=== PATIENT | male | born 1995 | race Caucasian/White ===

== ENCOUNTER 2016-11-13 12:41 | Outpatient (CLI) | payer OTHER | END 2016-11-13 12:42 | disposition home or self-care (01) | DX: M25.562 Pain in left knee (principal); S80.02XA Contusion of left knee, initial encounter; S83.412A Sprain of medial collateral ligament of left knee, initial encounter; S86.812A Strain of other muscle(s) and tendon(s) at lower leg level, left leg, initial encounter ==

== ENCOUNTER 2017-08-07 03:58 | Emergency (ER) | payer OTHER ==
--- NOTE | 2017-08-07 05:09 | ED Physician Documentation ---
PD HPI CHEST PAIN - Stated complaint Stated Complaint: CHEST PAIN,DIZZINESS - Chief complaint Chief Complaint: Cardiac - History obtained from History obtained from: Patient, Family - History of Present Illness Timing - onset: Today Timing - onset during: Rest Timing - details: Now resolved Quality: Pressure, Aching Location: Left chest Improved by: Rest Associated symptoms: Feeling faint / dizzy. No: Shortness of air, Diaphoresis, Nausea Similar symptoms before: Work up / diagnostics Recently seen: Not recently seen - Additional information Additional information: Patient is a 22 year old male with a history of anxiety who is presenting to the emergency department for chest pain. Patient states that he was sleeping on his left arm and when he woke up it felt like it was tingling. Patient states that he had some pain and felt dizzy at that time. patient states that his pain has now resolved. Patient denies any shortness of breath, leg swelling or family history of cardiac or pulmonary disease. Review of Systems Constitutional: denies: Fever, Chills Eyes: denies: Decreased vision Ears: denies: Ear pain, Drainage/discharge Nose: denies: Congestion Throat: denies: Oral lesions / sores, Sore throat Cardiac: reports: Chest pain / pressure. denies: Palpitations, Pedal edema, Calf pain Respiratory: denies: Dyspnea, Cough, Wheezing GI: denies: Abdominal Pain, Nausea, Vomiting, Constipation : denies: Dysuria, Frequency Skin: denies: Rash, Lesions Musculoskeletal: denies: Neck pain, Back pain, Extremity pain, Joint pain Neurologic: denies: Generalized weakness, Focal weakness, Numbness, Syncope, Headache, LOC Psychiatric: reports: Anxiety Immunocompromised: denies: Immunocompromised PD PAST MEDICAL HISTORY - Past Medical History Past Medical History: Yes Other Past Medical History: VSD - Past Surgical History Past Surgical History: No - Present Medications Home Medications: Ambulatory Orders Medication Instructions Recorded Confirmed No Known Home Medications [No 08/07/17 08/07/17 Known Home Medications] - Allergies Allergies/Adverse Reactions: Allergies Allergy/AdvReac Type Severity Reaction Status Date / Time No Known Drug Allergies Allergy Verified 08/07/17 04:11 - Social History Does the pt smoke?: No Smoking Status: Never smoker Does the pt drink ETOH?: Yes Does the pt have substance abuse?: No - Immunizations Immunizations are current?: Yes - POLST Patient has POLST: No PD ED PE NORMAL - Vitals Vital signs reviewed: Yes - General General: Alert and oriented X 3 - HEENT HEENT: Atraumatic, PERRL - Neck Neck: No JVD - Cardiac Cardiac: RRR, No murmur - Respiratory Respiratory: No respiratory distress, Clear bilaterally - Abdomen Abdomen: Soft, Non tender, Non distended - Derm Derm: Normal color, Warm and dry, No rash - Extremities Extremities: No deformity, Normal ROM s pain, No edema, No calf tenderness / cord - Neuro Neuro: Alert and oriented X 3, No motor deficit, No sensory deficit, Normal speech - Psych Psych: Normal mood Results - Vitals Vitals: Vital Signs - 24 hr 08/07/17 04:05 Temperature 36.2 C L Heart Rate 79 Respiratory 14 Rate Blood Pressure 120/62 O2 Saturation 100 Oxygen O2 Source Room air - EKG (time done) 0420 Rate: Rate (enter#) (77) Rhythm: NSR [place]: Normal Intervals: Normal NM QRS: Normal Ischemia: Non specific changes Compare to prior EKG: Old EKG unavailable - Labs Labs: Laboratory Tests 08/07/17 04:23 Troponin I < 0.04 PD MEDICAL DECISION MAKING - ED course Complexity details: reviewed old records, reviewed results, re-evaluated patient , considered differential, d/w patient, d/w family ED course: Patient was seen and examined at bedside. ekg was performed which was normal sinus. troponin was drawn and was also within normal limits. Patient had negative PERC and MELISSA and HEART scores. Patient's pain was unlikely cardiac or pulmonary in nature. Patient required no further work up and was stable for discharge with outpatient follow up. Departure - Departure Disposition: 01 Home, Self Care Clinical Impression: Atypical chest pain Condition: Good Instructions: ED Chest Pain Atypical Unkn Cause Follow-Up: ANAND SANDERS [Primary Care Provider] - Comments: Your diagnostics today were within normal limits. Your symptoms are unlikely cardiac in nature and more likely secondary to your anxiety or musculoskeletal in nature. You should follow up with your pmd as needed. You may return to the emergency department at any time for new, worsening or uncontrollable symptoms. Forms: Activity restrictions
[2017-08-07 05:25] VITALS: BP 131/60
== END 2017-08-07 05:25 | disposition home or self-care (01) ==
LOC: ED 03:58
DX: R07.89 Other chest pain (principal); F41.9 Anxiety disorder, unspecified
CPT/HCPCS: 36415; 84484; 93005; 99283

== ENCOUNTER 2017-12-07 08:03 | Outpatient (CLI) | payer OTHER | END 2017-12-07 08:04 | disposition home or self-care (01) | LOC: DI 08:03 | DX: R00.2 Palpitations (principal); R01.1 Cardiac murmur, unspecified; Q21.0 Ventricular septal defect | CPT/HCPCS: 93306 ==

== ENCOUNTER 2017-12-11 09:24 | Outpatient (CLI) | payer OTHER | END 2017-12-11 09:25 | disposition home or self-care (01) | LOC: RT 09:24 | DX: R06.2 Wheezing (principal) | CPT/HCPCS: 94060; J7613 ==

== ENCOUNTER 2018-02-25 04:15 | Inpatient (IN) | payer OTHER ==
[2018-02-25] MEDS ORDERED: SODIUM CHLORIDE 0.9% 1,000 ML IV ONE ×2 (04:33→06:03)
[2018-02-25 04:36] LABS: GLUCOSE, URINE (UA) NEGATIVE (NEGATIVE); KETONES,URINE (UA) TRACE mg/dL (NEGATIVE); LEUKOCYTE ESTERASE, URINE TRACE (NEGATIVE); NITRITE,URINE NEGATIVE (NEGATIVE); OCCULT BLOOD,URINE LARGE (NEGATIVE); PROTEIN,URINE 30 mg/dL (NEGATIVE); UROBILINOGEN,URINE 0.2 (NORMAL) E.U./dL (NORMAL)
--- NOTE | 2018-02-25 04:36 | ED Physician Documentation ---
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 Tonight and early this morning, he had two episodes of syncope while at home and subsequently noted what appeared to be gross hematuria. Review of Systems Constitutional: reports: Myalgias. denies: Fever Cardiac: reports: Reviewed and negative Respiratory: reports: Reviewed and negative GI: reports: Reviewed and negative : reports: Hematuria. denies: Dysuria, Frequency Musculoskeletal: denies: Neck pain, Back pain Neurologic: denies: Generalized weakness, Focal weakness, Headache PD PAST MEDICAL HISTORY - Past Medical History Past Medical History: Yes Other Past Medical History: VSD - Past Surgical History Past Surgical History: No - Present Medications Home Medications: Ambulatory Orders Medication Instructions Recorded Confirmed Venlafaxine ER [Effexor ER] 1 tab PO DAILY 02/25/18 02/25/18 - Allergies Allergies/Adverse Reactions: Allergies Allergy/AdvReac Type Severity Reaction Status Date / Time No Known Drug Allergies Allergy Verified 02/25/18 04:21 - Living Situation Living Arrangement: reports: At home - Social History Does the pt smoke?: No Smoking Status: Never smoker Does the pt drink ETOH?: Yes Does the pt have substance abuse?: No - Immunizations Immunizations are current?: Yes - POLST Patient has POLST: No PD ED PE NORMAL - Vitals Vital signs reviewed: Yes - General General: Alert and oriented X 3, No acute distress, Well developed/nourished - HEENT HEENT: Moist mucous membranes - Neck Neck: Supple, no meningeal sign - Cardiac Cardiac: RRR, No murmur - Respiratory Respiratory: No respiratory distress, Clear bilaterally - Abdomen Abdomen: Soft, Non tender - Derm Derm: Normal color, Warm and dry - Extremities Extremities: No edema Results - Vitals Vitals: Vital Signs - 24 hr 02/25/18 04:19 Temperature 36.3 C L Heart Rate 69 Respiratory 16 Rate Blood Pressure 123/76 O2 Saturation 99 Oxygen O2 Source Room air - Labs Labs: Laboratory Tests 02/25/18 02/25/18 02/25/18 04:30 04:30 04:30 WBC 11.2 H RBC 5.46 Hgb 15.6 Hct 47.0 MCV 86.2 MCH 28.7 MCHC 33.3 RDW 13.0 Plt Count 303 MPV 8.1 Neut # 6.9 H Lymph # 2.7 [place] # 1.1 H Eos # 0.4 Baso # 0.1 Absolute Nucleated RBC 0.01 Nucleated RBC % 0.1 Sodium 135 Potassium 3.3 L Chloride 96 L Carbon Dioxide 29 Anion Gap 10.0 BUN 19 Creatinine 1.0 Estimated GFR (MDRD) 92 Glucose 173 H Calcium 9.3 Total Bilirubin 1.1 H AST 293 H ALT 70 H Alkaline Phosphatase 64 Total Creatine Kinase CK-MB (CK-2) Total Protein 7.9 Albumin 4.6 Globulin 3.3 Albumin/Globulin Ratio 1.4 Lipase 24 Urine Color YELLOW Urine Clarity CLEAR Urine pH 7.0 Ur Specific [place] 1.015 Urine Protein 30 H Urine Glucose (UA) NEGATIVE Urine Ketones TRACE Urine Occult Blood LARGE H Urine Nitrite NEGATIVE Urine Bilirubin NEGATIVE Urine Urobilinogen 0.2 (NORMAL) Ur Leukocyte Esterase TRACE H Urine RBC 6-10 H Urine WBC 11-25 H Ur Squamous Epith Cells RARE Squamous Urine Bacteria Few Urine Mucus Marked Strands Ur Microscopic Review INDICATED Urine Culture Comments INDICATED 02/25/18 02/25/18 04:30 04:30 WBC RBC Hgb Hct MCV MCH MCHC RDW Plt Count MPV Neut # Lymph # [place] # Eos # Baso # Absolute Nucleated RBC Nucleated RBC % Sodium Potassium Chloride Carbon Dioxide Anion Gap BUN Creatinine Estimated GFR (MDRD) Glucose Calcium Total Bilirubin AST ALT Alkaline Phosphatase Total Creatine Kinase 9496 H* CK-MB (CK-2) 70.8 H Total Protein Albumin Globulin Albumin/Globulin Ratio Lipase Urine Color Urine Clarity Urine pH Ur Specific [place] Urine Protein Urine Glucose (UA) Urine Ketones Urine Occult Blood Urine Nitrite Urine Bilirubin Urine Urobilinogen Ur Leukocyte Esterase Urine RBC Urine WBC Ur Squamous Epith Cells Urine Bacteria Urine Mucus Ur Microscopic Review Urine Culture Comments PD MEDICAL DECISION MAKING - ED course Complexity details: reviewed results, re-evaluated patient, considered differential, d/w patient Departure - Departure Disposition: 66 [facility] DC/Xfer Clinical Impression: Rhabdomyolysis Condition: Good Discharge Date/Time: 02/25/18 07:07
[2018-02-25 04:37] LABS: BASOPHILS # (AUTO) 0.1 10^3/uL (0.0-0.1); BASOPHILS % (AUTO) 0.8 %; EOSINOPHILS # (AUTO) 0.4 10^3/uL (0.0-0.7); EOSINOPHILS % (AUTO) 3.6 %; HGB - HEMOGLOBIN 15.6 g/dL (14.0-18.0); LYMPHOCYTES # (AUTO) 2.7 10^3/uL (1.5-3.5); MEAN CORPUSCULAR HEMOGLOBIN 28.7 pg (27.0-31.0); MEAN CORPUSCULAR HGB CONC 33.3 g/dL (32.0-36.0); MEAN CORPUSCULAR VOLUME 86.2 fL (80.0-94.0); MEAN PLATELET VOLUME 8.1 fL (7.4-11.4); MONOCYTES # (AUTO) 1.1 10^3/uL (0.0-1.0); MONOCYTES % (AUTO) 9.5 %; NEUTROPHILS # (AUTO) 6.9 10^3/uL (1.5-6.6); NEUTROPHILS % (AUTO) 62.1 %; PLT - PLATELET COUNT 303 10^3/uL (130-450); RED BLOOD COUNT 5.46 10^6/uL (4.70-6.10); WHITE BLOOD COUNT 11.2 x10^3/uL (4.8-10.8)
[2018-02-25 04:38] LABS: CLARITY,URINE CLEAR (CLEAR)
[2018-02-25 04:41] LABS: BILIRUBIN,URINE NEGATIVE (NEGATIVE); ICTOTEST,URINE NEGATIVE
[2018-02-25 04:45] LABS: BACTERIA,URINE Few /HPF (None Seen); MUCUS,URINE Marked Strands; SQUAMOUS EPITHELIAL CELL,UR RARE Squamous (<= Few)
[2018-02-25 04:48] LABS: ALBUMIN 4.6 g/dL (3.2-5.5); ALBUMIN/GLOBULIN RATIO 1.4 (1.0-2.2); BILIRUBIN,TOTAL 1.1 mg/dL (0.2-1.0); CALCIUM 9.3 mg/dL (8.5-10.3); TOTAL PROTEIN 7.9 g/dL (6.7-8.2)
[2018-02-25] MEDS ORDERED: ONDANSETRON ODT 4 MG TABLET TL PRN (05:58)
[2018-02-25] MEDS ORDERED: SODIUM CHLORIDE FLUSH 0.9% 10 ML SYRINGE IVP PRN (05:58)
[2018-02-25] MEDS ORDERED: oxyCODONE 5 MG TABLET PO PRN (05:58)
[2018-02-25] MEDS ORDERED: ONDANSETRON 4 MG/2 ML VIAL IVP PRN (05:58)
--- NOTE | 2018-02-25 08:03 | HISTORY & PHYSICAL EXAMINATION ---
DATE OF SERVICE: 02/25/2018 Physician: Alondra Solomon MD PRIMARY CARE PROVIDER: [facility]. ADMITTING PROVIDER: Alondra Solomon MD CHIEF COMPLAINT: Syncope. HISTORY OF PRESENT ILLNESS: The patient is a 22-year-old white male who has a small VSD, "so small it can't even be measured." He has been seen in our emergency room twice for palpitations and anxiety. He is going through a divorce. Once he was put on venlafaxine, quite a bit of his palpitations and anxiety have resolved. 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 Has not trained. He did the same thing with the [employer] race a year ago. Did not train. He drank a bottle of Gatorade and half a bottle of water. 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 He has not done that for quite some time. He does not know why he did not drink very much after the race. He does note that he was incredibly sore and that "everything hurts." He laughs and says that even the roof of his mouth and his eyeballs hurt. Rolling over in bed hurts. It is just diffuse myalgias and muscle pain. This morning he got up to urinate, he did notice that when he was urinating his urine was edi to brown. As he was standing at the sink washing his hands he started feeling nauseated, then diaphoretic with alternating cold and hot. Walked out to the hallway, rested his head against the cool hallway wall, and the next thing he knows he is on the floor. He had already started to call a friend of his when he passed out and the call had been going on for 15 seconds when he woke up. He then almost did it again when he got up to walk to go sit down or lie down. He was brought to the hospital by ambulance. He was evaluated by Dr. Angel. He is afebrile, normotensive, oxygenating well on room air. Other than his diffuse myalgias, he has got a negative physical exam. His laboratory studies show potassium of 3.3, anion gap that is normal, BUN and creatinine that are normal, random glucose of 173, total bilirubin 1.1, AST 293, ALT 70, and a total CK of 9496. White cell count is 11.2. Hemoglobin and hematocrit are normal. Urinalysis has proteinuria, large occult blood, leukocyte esterase, 6- 10 red cells and 11-25 white cells. Urine bilirubin is negative. PAST MEDICAL HISTORY 1. Avulsion fracture of one of his kneecaps. He cannot remember which one. 2. VSD since childhood. He has been seen by Cardiology in the past. Told that it is too small to operate on. They were thinking it was going to close on its own. Echocardiogram done with anxiety and palpitations in December 2017, shows the small high muscular ventricular septal defect with the left to right shunt. 3. Exercise-induced asthma. He rarely uses an inhaler. Never had to use it with the marathon. 4. Adjustment disorder with situational depression regarding his divorce. This is ongoing. [place]. Put on venlafaxine. Good results. Plan is to keep him on it for 6 months and then stop. ALLERGIES: NO KNOWN DRUG ALLERGIES. SOCIAL HISTORY: He is from [place]. 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 He has been in [place], [place], [place]. Did finish college education. He never smoked. Rarely drinks alcohol. Has no history of recreational abuse , specifically cannabis, cocaine, heroin, LSD, methamphetamines. He is currently his . He has no restrictions on his activities of daily living. FAMILY HISTORY 1. Dad is 48 and has ulcerative colitis. 2. Mom is 47 and unfortunately has problems with schizoaffective disorder induced from multiple polysubstance abuse including heroin, speed, etc. 3. One brother is healthy. 4. No children. CODE STATUS: FULL CODE. REVIEW OF SYSTEMS CONSTITUTIONAL: Has been without any changes in weight, no night sweats, and overall quite a healthy francie. He has gone from working out twice a day to once a day because of the stress of the divorce. HEENT: As already stated in HPI; the roof of his mouth hurts, eyeballs hurt with this episode. No blurred vision. No problems with swallowing or dysphagia. PULMONARY: Exercise-induced asthma. Otherwise, no history of bronchitis, shortness of breath, coughing, wheezing. Has not had asthma for quite some time now, maybe even a couple of years. CARDIAC: VSD as above. No edema. No orthopnea. No cyanosis. GASTROINTESTINAL: No blood in his stool. No abdominal pain. GENITOURINARY: Recent testicular pain. His doctor told him he wanted him to get an ultrasound to rule out testicular cancer, but he has not gotten around to doing it. He does have nocturia once. Not necessarily every night. Wonders if his stream is slightly decreased over time, but no hematuria or flank pain. JOINTS: Knees bother him, that is even without the [place] or the marathon, but otherwise his joints usually do not hurt. They just started hurting yesterday after the race. SKIN: Brand new tattoo, right arm. Otherwise no new lesions, rashes, pruritus. PSYCHIATRIC: Depression, anxiety are much improved with venlafaxine. Right now , more than anything he is "resigned. " There is no suicidal ideation. CENTRAL NERVOUS SYSTEM: Syncope is new for him. No history of seizures, memory is fine. No focal deficit complaints. No dysesthesias. PHYSICAL EXAMINATION VITAL SIGNS: Temperature is 36.3, pulse is 70, blood pressure is 128/73, respirations 16, 95% on room air. GENERAL: He is a medium height young white male who looks stated age, unshaven , no acute distress. HEENT: ENT unremarkable. Slightly dry oral mucosa but overall pink. Moist. Pupils reactive. Sclerae nonicteric. No facial asymmetry. Speech is normal. NECK: Supple. No JVD or bruits. LUNGS: Clear to auscultation and percussion. HEART: PMI normally placed with a regular rate and rhythm. I am not hearing a murmur with his VSD. ABDOMEN: Soft, nontender. No organomegaly. GENITOURINARY: I did not do a exam. EXTREMITIES: Warm without clubbing, cyanosis, or edema. There are no joint effusions. Muscles do hurt as I palpate calves, thighs, shoulders, shoulder girdle. NEUROLOGIC: He is alert and oriented to person, place, and time. Follows 2- step commands appropriately. Cranial nerves 2-12 normal. In getting up out of the bed to transfer to med/surg, he moans with the pain of it all. Slow to arise, but able to transfer from a lying to sitting position. Sitting to standing and then transferring to the wheelchair very slowly and with a lot of aches and pains, but no focal deficits. No tremors, no ataxia , no presyncope. CMP discussed as above, as was CBC. ASSESSMENT/PLAN 1. Nontraumatic rhabdomyolysis, induced from aggressive exercise. Plan inpatient admission. I did hesitate and wonder if he should be placed in observation, but I do think he is going to be here 2 midnights to bring his CPK under 5000. ATTESTATION: The patient will admitted less than 96 hours. At 96 hours, he will be evaluated for discharge or transfer. Also, consideration was given to a bicarbonate drip. I am going to repeat his CPK in 6 hours. If his CPK has come down with another liter of normal saline followed by 200 mL of normal saline, I will not add bicarbonate to his normal saline. If his CPK does not come down, consider blood gas, adding bicarbonate to IV fluids. The patient is anxious. Wonders if he is at risk for dying, heart failure, kidney damage because of what he has read on the internet. I reassured him that to the best of my reasonable expectation, he is a young, healthy white male who has suffered the unfortunate consequences of aggressive exercise. So far, his labs look great other than the elevated CPK and the elevated liver enzymes. Nevertheless, he will be closely monitored with telemetry, labs every 6 hours for the next 12 hours, looking for electrolyte derangement. 2. Syncope with history of ventricular septal defect. Already had the echo in December. To follow up with his audio video repairer next month, that is already in the works and being planned for. I strongly encouraged him to do so. With his current history of syncope, which he has never done before, audio video repairer should be notified. Again, the patient will be placed on telemetry. 3. History of exercise-induced asthma. Currently stable. No medications needed at this time. 4. CODE STATUS: FULL CODE. 5. Deep venous thrombosis prophylaxis will be CLEOPATRA valle. TD: 02/25/2018 08:02 MTDYaritza
[2018-02-25] MEDS: SODIUM CHLORIDE FLUSH 0.9% 10 ML SYRINGE IVP SCH ×3 (08:52→23:34)
[2018-02-25] MEDS: SODIUM CHLORIDE 0.9% 1,000 ML IV SCH ×4 (08:52→22:19)
[2018-02-25] MEDS: POLYETHYLENE GLYCOL 3350 17 GM PACKET PO SCH (08:53)
[2018-02-25 10:49] LABS: CALCIUM 8.5 mg/dL (8.5-10.3); CREATININE 0.7 mg/dL (0.6-1.2)
--- NOTE | 2018-02-25 13:29 | PROVIDER PROGRESS NOTE ---
Subjective - Prog Note Date Prog Note Date: 02/25/18 - Subjective Pt reports feeling: Improved Subjective: pt does not have any complaints, does not have distress. Current Medications - Current Medications Current Medications: Active Medications Sodium Chloride (Normal Saline 0.9%) 1,000 mls @ 200 mls/hr IV .Q5H [facility] Last Admin: 02/25/18 12:28 Dose: 200 mls/hr Ondansetron HCl (Zofran Inj) 4 mg IVP Q6HR PRN PRN Reason: Nausea / Vomiting Ondansetron HCl (Zofran Odt) 4 mg TL Q6HR PRN PRN Reason: Nausea / Vomiting Oxycodone HCl (Roxicodone) 5 mg PO Q4HR PRN PRN Reason: Pain 5 to 7 Polyethylene Glycol (Miralax) 17 gm PO DAILY [facility] Last Admin: 02/25/18 08:53 Dose: Not Given Sodium Chloride (Normal Saline Flush 0.9%) 10 ml IVP PRN PRN PRN Reason: NEEDED PER PROVIDER ORDERS Sodium Chloride (Normal Saline Flush 0.9%) 10 ml IVP 0100,0900,1700 [facility] Last Admin: 02/25/18 08:52 Dose: Not Given Venlafaxine ER [Effexor ER] 75 mg PO DAILY 02/25/18 Objective - Vital Signs/Intake & Output Reviewed Vital Signs: Yes Vital Signs: Vital Signs x48h Temp Pulse Pulse Resp BP BP Pulse Ox 02/25/18 07:34 37.0 C 68 14 112/64 98 02/25/18 06:15 70 16 128/73 95 Intake & Output: Intake & Output 02/22/18 02/23/18 02/24/18 02/25/18 23:59 23:59 23:59 23:59 Intake Total 2570 Balance 2570 - Objective General Appearance: positive: No acute distress, Alert. negative: Lethargic Eyes Bilateral: positive: Normal inspection, PERRL, No lid inflammation, Conjunctivae nml ENT: positive: ENT inspection nml, Pharynx nml, No signs of dehydration. negative: Purulent nasal drainage, Pharyngeal erythema, Oral lesions, Dry mucous membranes Neck: positive: Nml inspection, Thyroid nml, No JVD, Trachea midline. negative : Thyromegaly, Lymphadenopathy (R), Lymphadenopathy (L), Stiff neck, Carotid bruit, Swelling/bruising, Tracheal deviation Respiratory: positive: Chest non-tender, No respiratory distress, Breath sounds nml. negative: Wheezes, Rales, Rhonchi Cardiovascular: positive: Regular rate & rhythm, No murmur, No gallop. negative : Irregularly irregular, Extrasystoles, Tachycardia, Bradycardia, JVD present, Systolic murmur, Diastolic murmur Peripheral Pulses: 2+ Radial (R), 2+ Radial (L), 2+ Dorsalis pedis (R), 2+ Dorsalis pedis (L) Abdomen: positive: Non-tender, No organomegaly, Nml bowel sounds, No distention. negative: Tenderness, Guarding, Rebound Back: positive: Nml inspection. negative: CVA tenderness (R), CVA tenderness (L ) Skin: positive: Color nml, No rash, Warm, Dry. negative: Cyanosis, Diaphoresis , Pallor Extremities: positive: Non-tender, Full ROM, Nml appearance. negative: No pedal edema, Pedal edema, Calf tenderness, Joint swelling Neurologic/Psychiatric: positive: Oriented x3, CN's nml (2-12), Motor nml, Sensation nml, Mood/affect nml. negative: Weakness, Sensory loss, Facial droop , Slurred/abnml speech, Depressed mood/affect - Lab Results Fish Bones: 02/25/18 04:30 02/25/18 09:46 Other Labs: Lab Results x24hrs 02/25/18 Range/Units 09:46 Sodium 135 (135-145) mmol/L Potassium 3.0 L (3.5-5.0) mmol/L Chloride 101 (101-111) mmol/L Carbon Dioxide 26 (21-32) mmol/L Anion Gap 8.0 (6-13) BUN 13 (6-20) mg/dL Creatinine 0.7 (0.6-1.2) mg/dL Estimated GFR (MDRD) 139 (>89) Glucose 119 H (70-100) mg/dL Calcium 8.5 (8.5-10.3) mg/dL Total Creatine Kinase 6177 H* (22-269) IU/L Assessment/Plan - Problem List (1) Rhabdomyolysis Impression: pt denies any pain. No distress. Normal renal function. CKP from 9000 is down to 6000 continue IVF at 200 continue lab test continue vital monitor Qualifiers: Rhabdomyolysis type: non-traumatic Qualified Code(s): M62.82 - Rhabdomyolysis (2) Syncope Impression: with hx of VSD, pt had ECHO on Dec. 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 pt denies chest pain, palpitation, SOB. No distress today. strongly encourage pt follow up vital, tele monitor (3) History of asthma Impression: stable, no any acute distress vital monitor (4) Depression with anxiety Impression: stable, resume home meds Effexor
[2018-02-25] MEDS: VENLAFAXINE ER 75 MG CAPSULE PO SCH (13:51)
[2018-02-25 16:51] LABS: CALCIUM 8.4 mg/dL (8.5-10.3); CREATININE 0.8 mg/dL (0.6-1.2)
[2018-02-25] MEDS ORDERED: ACETAMINOPHEN 325 MG TABLET PO PRN (17:04)
--- NOTE | 2018-02-25 18:30 | CT Report ---
EXAM: CT HEAD EXAM DATE: 02/25/2018 06:12 PM. CLINICAL HISTORY: Headache, after fall. COMPARISON: None. TECHNIQUE: Multiaxial CT images were obtained from the foramen magnum to the vertex. Reformats: Coron al. IV contrast: None. In accordance with CT protocol optimization, one or more of the following dose reduction techniques w ere utilized for this exam: automated exposure control, adjustment of mA and/or KV based on patient s ize, or use of iterative reconstructive technique. FINDINGS: Parenchyma: No intraparenchymal hemorrhage. No evidence of mass, midline shift, or CT findings of inf arction. Jerez-white differentiation is distinct. Extraaxial Spaces: Normal for age. No subdural or epidural collections. Ventricles: Normal in size and position. Sinuses and Orbits: Imaged paranasal sinuses, orbits, and mastoids show no significant abnormality. Bones: Unremarkable. Other: None. IMPRESSION: Normal head CT. [facility] Referring Provider Line: [phone] SITE ID: [id number]
[2018-02-26] MEDS: SODIUM CHLORIDE 0.9% 1,000 ML IV SCH ×2 (03:24→08:37)
[2018-02-26 05:04] LABS: BASOPHILS # (AUTO) 0.1 10^3/uL (0.0-0.1); EOSINOPHILS # (AUTO) 0.5 10^3/uL (0.0-0.7); EOSINOPHILS % (AUTO) 7.6 %; HGB - HEMOGLOBIN 13.1 g/dL (14.0-18.0); LYMPHOCYTES # (AUTO) 1.9 10^3/uL (1.5-3.5); LYMPHOCYTES % (AUTO) 32.3 %; MEAN CORPUSCULAR HEMOGLOBIN 28.9 pg (27.0-31.0); MEAN CORPUSCULAR HGB CONC 33.2 g/dL (32.0-36.0); MEAN CORPUSCULAR VOLUME 87.1 fL (80.0-94.0); MEAN PLATELET VOLUME 8.1 fL (7.4-11.4); MONOCYTES # (AUTO) 0.6 10^3/uL (0.0-1.0); MONOCYTES % (AUTO) 9.9 %; NEUTROPHILS % (AUTO) 49.2 %; PLT - PLATELET COUNT 244 10^3/uL (130-450); RED BLOOD COUNT 4.52 10^6/uL (4.70-6.10); RED CELL DISTRIBUTION WIDTH 13.2 % (12.0-15.0)
[2018-02-26 05:20] LABS: ALBUMIN 3.4 g/dL (3.2-5.5); ALBUMIN/GLOBULIN RATIO 1.5 (1.0-2.2); BILIRUBIN,TOTAL 0.6 mg/dL (0.2-1.0); CALCIUM 8.1 mg/dL (8.5-10.3); CREATININE 0.7 mg/dL (0.6-1.2); MAGNESIUM 1.8 mg/dL (1.7-2.8); TOTAL PROTEIN 5.7 g/dL (6.7-8.2)
[2018-02-26 08:12] VITALS: BP 120/79
[2018-02-26] MEDS: VENLAFAXINE ER 75 MG CAPSULE PO SCH (09:09)
[2018-02-26] MEDS: POLYETHYLENE GLYCOL 3350 17 GM PACKET PO SCH (09:33)
[2018-02-26] MEDS: SODIUM CHLORIDE FLUSH 0.9% 10 ML SYRINGE IVP SCH (09:33)
--- NOTE | 2018-02-26 10:18 | Discharge Plan ---
Discharge Plan Disposition: 01 Home, Self Care Condition: Good Diet: Regular Activity Restrictions: No Restrictions Shower Restrictions: No Driving Restrictions: No Weight Bearing: Full Weight Additional Instructions or Follow Up instructions: You were treated for rhabdomyolysis using IV fluids and your labs were checked. Continue to drink extra fluids either water, juice, or gatorade. Please rest when you are tired and stay off work until you see your regular doctor within one week. No Smoking: If you smoke, Please STOP! Call for help. Follow-up with: EVELYN ROMERO [Primary Care Provider] -
--- NOTE | 2018-02-26 10:19 | DISCHARGE SUMMARY ---
Discharge Summary Admit Date: 02/25/18 Discharge Date: 02/26/18 Discharging Provider: LES Hobson [facility] Code Status: Attempt Resuscitation Condition at Discharge: Good Discharge Disposition: 01 Home, Self Care - DIAGNOSES Admission Diagnoses: Rhabdomyolysis (M62.82) Syncope and collapse (R55) Ventricular septal defect (Q21.0) Discharge Diagnoses with Status of Each Condition: Non-traumatic rhabdomyolysis (M62.82) -new on this admit, stable upon discharge. Syncope (R55)- resolved. VSD (ventricular septal defect) (Q21.0)- chronic, stable, recommend establishing Cardiology care. Situational depression- chronic, stable. Exercise induced asthma- chronic, stable. - HPI History of Present Illness: Merritt Mejia is a healthy 22-year old male with a past medical history of palpitations, exercise induced asthma, situational depression, anxiety, mild VSD. He is going through a divorce and is prescribed Effexor. 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 He drank a bottle of Gatorade and half a bottle of water. He normally drinks up to a gallon of water per day. He complains of whole body aches, hematuria, and had a syncopal episode prior to arriving in the ED. Lab results revealed an elevated CK of 9496, hypokalemia with a potassium of 3.0, and an elevated WBC count of 11.2. He will be admitted to inpatient for treatment of rhabdomyolysis induced from aggressive exercise. - HOSPITAL COURSE Hospital Course: The following diagnoses were prevalent during this hospital stay: (1) Rhabdomyolysis- The patient had an elevated CK level of 9496, that reduced to an acceptable range of 3596 upon discharge. The patient had no other abnormalities, including normal renal function. He was given agressive IV therapy using normal saline. His vital signs were monitored. This condition is considered nearly resolved by the time of discharge. (2) Syncope- The patient likely had this syncope due to his comprised state and illness. He has a known history of VSD, which was stable at the time of his last ECHO in December of 2017. He was instructed at that time to get a cardiology consult, which he has not gotten around to yet. He was continuously monitored on telemetry which was normal without ectopy. During his stay, he denied chest pain, dizziness, palpitations, or SOB. Vital signs remained stable. This condition is considered resolved at the time of discharge. (3) History of asthma- The patient denies difficulty breathing during or after his marathon. He has not required use of his rescue inhaler. This condition is considered to be stable without acute distress, and stable at the time of discharge. (4) Depression with anxiety- The patient is going through some rough times lately, since he is in the midst of a divorce. He denies suicidal ideation and claims to be mentally stable. His home Effexor was placed on hold overnight, and resumed upon discharge. This is considered to be stable at the time of discharge. Disposition: The patient was anxious to go home and was in stable condition at the time of discharge. Although the patient's CK was still elevated, it was trending downward nicely, and the patient was compliant with discharge plan of drinking extra fluids and to follow up within one week with his primary MD. - ALLERGIES Allergies/Adverse Reactions: Allergies Allergy/AdvReac Type Severity Reaction Status Date / Time No Known Drug Allergies Allergy Verified 02/25/18 04:21 - MEDICATIONS Home Medications: Ambulatory Orders Medication Instructions Recorded Confirmed Venlafaxine ER [Effexor ER] 75 mg PO DAILY 02/25/18 02/25/18 - PHYSICAL EXAM AT DISCHARGE General Appearance: positive: No acute distress, Alert Eyes Bilateral: positive: Normal inspection, PERRL ENT: positive: ENT inspection nml, Pharynx nml, No signs of dehydration Neck: positive: Nml inspection, Thyroid nml, No JVD, Trachea midline Respiratory: positive: Chest non-tender, No respiratory distress, Breath sounds nml Cardiovascular: positive: Regular rate & rhythm, No murmur, No gallop Peripheral Pulses: positive: 2+ Abdomen: positive: Non-tender, No organomegaly, Nml bowel sounds, No distention Back: positive: Nml inspection Skin: positive: Color nml, No rash, Warm, Dry Extremities: positive: Non-tender, Full ROM, Nml appearance, No pedal edema Neurologic/Psychiatric: positive: Oriented x3, CN's nml (2-12), Motor nml, Sensation nml, Mood/affect nml Reflexes: Bicep (R): 4+, Bicep (L): 4+, Ankle (R): 4+, Ankle (L): 4+ - LABS Result Diagrams: 02/26/18 04:31 02/26/18 04:31 - DIAGNOSTIC IMAGING Diagnostic Imaging Results: Final report reviewed Diagnostic Imaging Results Comments: EXAM: CT HEAD EXAM DATE: 02/25/2018 06:12 PM. CLINICAL HISTORY: Headache, after fall. COMPARISON: None. TECHNIQUE: Multiaxial CT images were obtained from the foramen magnum to the vertex. Reformats: Coronal. IV contrast: None. In accordance with CT protocol optimization, one or more of the following dose reduction techniques were utilized for this exam: automated exposure control, adjustment of mA and/or KV based on patient size, or use of iterative reconstructive technique. FINDINGS: Parenchyma: No intraparenchymal hemorrhage. No evidence of mass, midline shift, or CT findings of infarction. Jerez-white differentiation is distinct. Extraaxial Spaces: Normal for age. No subdural or epidural collections. Ventricles: Normal in size and position. Sinuses and Orbits: Imaged paranasal sinuses, orbits, and mastoids show no significant abnormality. Bones: Unremarkable. Other: None. IMPRESSION: Normal head CT. - FOLLOW UP Follow Up: Disposition: 01 Home, Self Care Condition: Good Diet: Regular Activity Restrictions: No Restrictions Shower Restrictions: No Driving Restrictions: No Weight Bearing: Full Weight Additional Instructions or Follow Up instructions: You were treated for rhabdomyolysis using IV fluids and your labs were checked. Continue to drink extra fluids either water, juice, or gatorade. Please rest when you are tired and stay off work until you see your regular doctor within one week. - TIME SPENT Time Spent in Discharge (Minutes): 45
== END 2018-02-26 11:12 | disposition home or self-care (01) | DRG 558 ==
LOC: ED 04:15 → MS3 05:59
PROVIDERS: ADMIT Specialist; ATTEND Nurse Practitioner
DX: M62.82 Rhabdomyolysis (principal); Q21.0 Ventricular septal defect; R55 Syncope and collapse; F43.21 Adjustment disorder with depressed mood; J45.990 Exercise induced bronchospasm; F41.8 Other specified anxiety disorders; Y93.02 Activity, running; Z63.5 Disruption of family by separation and divorce
CPT/HCPCS: 36415; 70450; 80048; 80053; 81001; 81003; 82550; 82553; 83690; 83735; 85025; 87086; 96360; 99283; 99284